=== PATIENT | male | born 1950 | race Caucasian/White ===

== ENCOUNTER 2017-02-12 09:26 | Emergency (ER) | payer OTHER | END 2017-02-12 11:02 | disposition home or self-care (01) | LOC: D.ER 09:26 | DX: M25.562 Pain in left knee (principal); M06.9 Rheumatoid arthritis, unspecified; M11.20 Other chondrocalcinosis, unspecified site; C18.9 Malignant neoplasm of colon, unspecified; J44.9 Chronic obstructive pulmonary disease, unspecified; E11.9 Type 2 diabetes mellitus without complications; Z79.4 Long term (current) use of insulin; A15.9 Respiratory tuberculosis unspecified ==

== ENCOUNTER 2017-06-04 14:54 | Inpatient (IN) | payer OTHER ==
[~2017-06-04] VITALS: Ht 177.8 cm; Wt 71.7 kg
[2017-06-04 16:12] LABS: HEMATOCRIT 34.9 % (42.0-54.0); HEMOGLOBIN 11.7 g/dL (13.5-17.5); KETONE - SERUM MODERATE mg/dL (NEGATIVE); MCH 34.5 pg (26.0-34.0); MCHC 33.5 g/dL (31.0-37.0); MCV 102.9 fL (80.0-100.0); MEAN PLATELET VOLUME 10.3 fL (7.4-10.4); PLATELET COUNT 264 10x3/uL (130-400); RBC 3.39 10x6/uL (4.20-6.10); RDW 12.1 % (11.5-14.5)
[2017-06-04 16:23] LABS: APTT 30.6 SECONDS (22.8-39.4); INR 1.22 (0.85-1.17); PROTIME 15.3 SECONDS (11.6-15.0)
[2017-06-04 16:25] LABS: UDS - AMPHET NEGATIVE QUAL (NEGATIVE); UDS - BARB NEGATIVE QUAL (NEGATIVE); UDS - BENZO NEGATIVE QUAL (NEGATIVE); UDS - COCAINE NEGATIVE QUAL (NEGATIVE); UDS - METH NEGATIVE QUAL (NEGATIVE); UDS - OPIATE NEGATIVE QUAL (NEGATIVE); UDS - PCP NEGATIVE QUAL (NEGATIVE); UDS - THC NEGATIVE QUAL (NEGATIVE)
[2017-06-04 16:36] LABS: APPEARANCE CLEAR (CLEAR); COLOR YELLOW (YELLOW)
[2017-06-04 16:37] LABS: ALBUMIN 3.5 g/dL (3.4-5.0); ALKALINE PHOSPHATASE 68 U/L (46-116); ALT (SGPT) 17 U/L (10-68); BILIRUBIN - TOTAL 0.89 mg/dL (0.2-1.3); CALC OSMOLALITY 316 mosm/kg (275-300); CALCIUM 8.3 mg/dL (8.5-10.1); CREATINE KINASE 211 UL (21-232); CREATININE - SERUM 2.8 mg/dL (0.6-1.3); POTASSIUM - SERUM 5.6 mmol/L (3.5-5.1); PROTEIN - SERUM 6.8 g/dL (6.4-8.2); SODIUM 130 mmol/L (136-145); TROPONIN-I 0.125 ng/mL (0.000-0.060); UREA NITROGEN 43 mg/dL (7-18); eGFR NON AFRICAN AMERICAN 24 mL/min (90-120)
[2017-06-04 16:37] LABS: BILIRUBIN NEGATIVE (NEGATIVE); GLUCOSE 1000 mg/dL (NEGATIVE); KETONE MODERATE mg/dL (NEGATIVE); LEUKOCYTE ESTERASE NEGATIVE (NEGATIVE); NITRITE NEGATIVE (NEGATIVE); PROTEIN TRACE mg/dL (NEGATIVE); SPECIFIC GRAVITY 1.025 (1.005-1.020); UROBILINOGEN NORMAL (NORMAL)
[2017-06-04 16:39] LABS: EOSINOPHILS 2 % (0-7); LYMPHOCYTES 10 % (15-50); NEUTROPHILS 88 % (40-80); PLATELET ESTIMATE NORMAL
[2017-06-04 16:42] LABS: GLUCOSE 903 mg/dL (74-106)
[2017-06-04 16:43] LABS: CARBON DIOXIDE 5.8 mmol/L (21.0-32.0); CHLORIDE - SERUM 84 mmol/L (98-107)
[2017-06-04 20:39] LABS: HEMOGLOBIN A1C 6.2 % (4.8-6.0)
[2017-06-04 20:48] LABS: MAGNESIUM - SERUM 1.9 mg/dL (1.8-2.4); PHOSPHOROUS 7.8 mg/dL (2.5-4.9)
--- NOTE | 2017-06-04 23:30 | NUR ---
ARRIVED TO UNIT FROM ER X2 NURSES. ADMISSION ASSESSMENT COMPLETE PER FLOW SHEET. ALERT AND ORIENTED TO PERSON, TIME, AND SITUATION. ORAL TEMP 97.6. BP 124/63 NIBP. HR 92. RR 34. O2 SAT 97% VIA ROOM AIR. SPEECH CLEAR. PERRLA. LUNG SOUNDS CLEAR. S1S2 PRESENT. TELEMETRY MONITORING NORMAL SINUS. REPORTS HE WEARS GLASSES, AND UPPER AND LOWER DENTURES. RADIAL AND POPLITEAL PULSES PALP. NPO PER DOCTORS ORDERS. MUCOUS MEMBRANES PINK AND MOIST. BS ACTIVE X4. SKIN WARM AND DRY. GENERALIZED GRANULOMA ANNULARE. L HAND SCAR REPORTS ITS DUE FROM MULTIPLE FRACTURES DUE TO A FALL.18G LT AC PIV, PATENT, DRESSING CLEAN AND INTACT, INFUSING INSULIN DRIP AT 7 UNITS/HR.22G RT FOREARM PIV, PATENT, DRESSING CLEAN AND INTACT. UP WITH ASSISTANCE. SEE FLOW SHEET FOR COMPLETE ASSESSMENT. WILL CONTINUE TO MONITOR. DENIES FURTHER NEEDS AT THIS TIME. BED IN LOWEST POSITION. CALL LIGHT WITHIN REACH.
[2017-06-05] VITALS (21 sets, daily range): BP systolic 95–124; BP diastolic 43–63; Ht 177.8 cm; Wt 71.7 kg
--- NOTE | 2017-06-05 01:00 | NUR ---
LAYING IN BED RESTING. ASSISTED TO BED SIDE TO USE URINAL. 700 MLS OF YELLOW URINE OBTAINED. DENIES FURTHER NEEDS. LAYING BACK IN BED. CALL LIGHT WITHIN REACH. BED IN LOWEST POSITION. WILL CONTINUE TO MONITOR.
--- NOTE | 2017-06-05 03:00 | NUR ---
REASSESSMENT COMPLETE PER FLOW SHEET, SEE FOR DETAILS. DENIES NEEDS AT THIS TIME. CALL LIGHT WITHIN REACH. BED IN LOWEST POSITION. WILL CONTINUE TO MONITOR.
[2017-06-05 03:58] LABS: BASOPHILS 0.1 % (0-2); EOSINOPHILS 0 % (0-7); HEMATOCRIT 31.5 % (42.0-54.0); HEMOGLOBIN 11.1 g/dL (13.5-17.5); IMMATURE GRANULOCYTES 0.2 % (0-5); LYMPHOCYTES 8.2 % (15-50); MCH 34.2 pg (26.0-34.0); MCHC 35.2 g/dL (31.0-37.0); MEAN PLATELET VOLUME 10.2 fL (7.4-10.4); MONOCYTES 5.8 % (2-11); NEUTROPHILS 85.7 % (40-80); PLATELET COUNT 237 10x3/uL (130-400); RBC 3.25 10x6/uL (4.20-6.10)
[2017-06-05 04:03] LABS: MCV 96.9 fL (80.0-100.0); WBC 11.2 10x3/uL (4.8-10.8)
[2017-06-05 04:15] LABS: ANION GAP 24.2 mmol/L (8-16); BILIRUBIN - TOTAL 0.75 mg/dL (0.2-1.3); CALCIUM 7.9 mg/dL (8.5-10.1); CREATININE - SERUM 2.1 mg/dL (0.6-1.3); POTASSIUM - SERUM 3.2 mmol/L (3.5-5.1); PROTEIN - SERUM 6.1 g/dL (6.4-8.2)
--- NOTE | 2017-06-05 04:30 | NUR ---
LAYING IN BED RESTING. DENIES NEEDS AT THIS TIME. CALL LIGHT WITHIN REACH. BED IN LOWEST POSITION. WILL CONTINUE TO MONITOR.
--- NOTE | 2017-06-05 05:30 | NUR ---
O2 SAT DROPPING TO LOW 80'S, ENCOURAGED TO TAKE DEEP BREATHS AND 2L NC APPLIED, O2 SAT IMPROVING TO 90'S. BED IN LOWEST POSITION. DENIES FURTHER NEEDS AT THIS TIME. WILL CONTINUE TO MONITOR.
--- NOTE | 2017-06-05 06:00 | NUR ---
LAYING IN BED RESTING. VSS. DENIES NEEDS AT THIS TIME. CALL LIGHT WITHIN REACH. BED IN LOWEST POSITION. WILL CONTINUE TO MONITOR.
--- NOTE | 2017-06-05 07:00 | NUR ---
PT AWAKE ALERT AND ORIENTED X4, ABLE TO FOLLOW COMMANDS AND EXPRESS NEEDS. PT APPEARS TO BE UPSET AND ARGUMENTATIVE WITH STAFF. EXPLAINED NEED FOR CARE. NORMAL SINUS ON MONITOR. O2 SAT STABLE ON 2L NC. PT BLOOD SUGAR WNL, INSULIN DRIP DC AND PT ON SLIDING SCALE PER DR GALLO. NYSTATIN STARTED FOR POSSIBLE THRUSH IN MOUTH, PT COMPLAINING OF DISCOMFORT FOR DAYS AND TROUBLE SWALLOWING. COMPLETE SHIFT ASSESSMENT DOCUMENTED PER FLOWSHEET. WILL CONTINUE TO MONITOR
[2017-06-05 08:13] LABS: KETONE - SERUM NEGATIVE (NEGATIVE)
[2017-06-05 08:16] LABS: CALCIUM 7.9 mg/dL (8.5-10.1); CHLORIDE - SERUM 104 mmol/L (98-107); CREATININE - SERUM 1.7 mg/dL (0.6-1.3); MAGNESIUM - SERUM 1.6 mg/dL (1.8-2.4); POTASSIUM - SERUM 3.6 mmol/L (3.5-5.1); SODIUM 142 mmol/L (136-145); UREA NITROGEN 48 mg/dL (7-18); eGFR NON AFRICAN AMERICAN 43 mL/min (90-120)
[2017-06-05 08:19] LABS: CALC OSMOLALITY 298 mosm/kg (275-300); CARBON DIOXIDE 28.4 mmol/L (21.0-32.0); GLUCOSE 160 mg/dL (74-106); TROPONIN-I 6.726 ng/mL (0.000-0.060)
--- NOTE | 2017-06-05 09:00 | NUR ---
CALLED THERAPY TO ENSURE SPEECH EVAL WILL BE DONE. SANTOS WILL BE HERE THIS MORNING TO EVAL AND SUGGEST DIET ORDER. NO CHANGES FROM PREVIOUS NOTE. VITAL SIGNS STABLE.
--- NOTE | 2017-06-05 11:00 | NUR ---
SWALLOW EVAL COMPLETE PER SANTOS CASTREJON AND DIABETIC DIET ORDERED. PT TOLERATING THIN LIQUIDS WITHOUT DIFFICULTY. WILL CONTINUE TO MONITOR
--- NOTE | 2017-06-05 12:00 | NUR ---
ATTEMPTED TO CALL [facility] FOR PT MEDICATION RECORD. NO ANSWER AFTER THREE CALLS. WILL INFORM DR GALLO.
--- NOTE | 2017-06-05 13:00 | NUR ---
TROPONIN ELEVATED, STAT EKG SHOWS NORMAL SINUS WITH SINUS ARRYTHMIA. REDRAW PUT IN COMPUTER. DR GALLO CALLED AND NOTIFIED. WILL CONSULT CARDIOLOGY AND PROCEED WITH TRANSFER TO FLOOR IF PT REMAINS STABLE.
--- NOTE | 2017-06-05 13:05 | NUR ---
CALLED [facility] OFFICE AND NOTIFIED OF NEW CONSULT. NO FURTHER CHANGES
[2017-06-05 13:07] LABS: ANION GAP 19.4 mmol/L (8-16); CALCIUM 7.9 mg/dL (8.5-10.1); CARBON DIOXIDE 22.3 mmol/L (21.0-32.0); CHOL - HDL RATIO 1.9 ratio (2.3-4.9); CREATININE - SERUM 1.4 mg/dL (0.6-1.3); LDL-HDL RATIO 0.7 ratio (1.5-3.5); MAGNESIUM - SERUM 1.6 mg/dL (1.8-2.4); POTASSIUM - SERUM 3.7 mmol/L (3.5-5.1)
[2017-06-05 13:11] LABS: TROPONIN-I 4.699 ng/mL (0.000-0.060)
--- NOTE | 2017-06-05 15:00 | NUR ---
NO ACUTE CHANGES IN PT STATUS AT THIS TIME. TRANSFER ORDERS IN COMPUTER. WAITING FOR BED TO TRANSFER. VITAL SIGNS STABLE
[2017-06-05 17:23] LABS: ANION GAP 19.2 mmol/L (8-16); CALCIUM 7.8 mg/dL (8.5-10.1); CARBON DIOXIDE 22.4 mmol/L (21.0-32.0); CREATININE - SERUM 1.2 mg/dL (0.6-1.3); MAGNESIUM - SERUM 1.5 mg/dL (1.8-2.4); POTASSIUM - SERUM 3.6 mmol/L (3.5-5.1)
--- NOTE | 2017-06-05 18:00 | NUR ---
REPORT GIVEN TO ELISE GOVEA. PT STABLE TO TRANSFER AT THIS TIME. NO ACUTE CHANGES IN STATUS.
--- NOTE | 2017-06-05 18:51 | NUR ---
PT ARRIVED TO UNIT ALERT AND ORIENTED DENIES ANY NEEDS
--- NOTE | 2017-06-05 19:29 | NUR ---
RECEIVED REPORT, WILL ASSUME CARE OF PT, PT DENIES ANY NEEDS AT THIS TIME, BED IS LOW, SRX2, CALL LIGHT IN REACH, WILL CONTINUE PLAN OF CARE
--- NOTE | 2017-06-05 19:55 | NUR ---
LOG CHAIN FEEDER AT BEDSIDE TO OBTAIN VITALS, CALL LIGHT IN REACH. WILL CONTINUE WITH PLAN OF CARE.
[2017-06-06] VITALS: BP 116/63
--- NOTE | 2017-06-06 01:45 | NUR ---
ASSESSMENT COMPLETE, SEE FLOWSHEET, PT SLEEPING ON R. SIDE, BED IS LOW, SRX2,CALL LIGHT IN REACH, WILL CONTINUE PLAN OF CARE
[2017-06-06 04:00] VITALS: BP 138/68
[2017-06-06 05:43] LABS: ALBUMIN 2.5 g/dL (3.4-5.0); ALKALINE PHOSPHATASE 53 U/L (46-116); BILIRUBIN - TOTAL 0.57 mg/dL (0.2-1.3); CALCIUM 7.8 mg/dL (8.5-10.1); CARBON DIOXIDE 21.5 mmol/L (21.0-32.0); CHLORIDE - SERUM 104 mmol/L (98-107); CREATININE - SERUM 0.9 mg/dL (0.6-1.3); GLUCOSE 227 mg/dL (74-106); MAGNESIUM - SERUM 1.6 mg/dL (1.8-2.4); POTASSIUM - SERUM 3.5 mmol/L (3.5-5.1); PROTEIN - SERUM 5.6 g/dL (6.4-8.2); SODIUM 142 mmol/L (136-145); eGFR NON AFRICAN AMERICAN 89 mL/min (90-120)
[2017-06-06 05:47] LABS: ALT (SGPT) 35 U/L (10-68); CALC OSMOLALITY 293 mosm/kg (275-300); UREA NITROGEN 25 mg/dL (7-18)
[2017-06-06 05:48] LABS: PHOSPHOROUS 1.4 mg/dL (2.5-4.9)
[2017-06-06 06:08] LABS: BASOPHILS 0.2 % (0-2); EOSINOPHILS 0.6 % (0-7); HEMOGLOBIN 10.9 g/dL (13.5-17.5); IMMATURE GRANULOCYTES 0.3 % (0-5); LYMPHOCYTES 14.1 % (15-50); MCH 34.1 pg (26.0-34.0); MCHC 35.2 g/dL (31.0-37.0); MCV 96.9 fL (80.0-100.0); MEAN PLATELET VOLUME 10.4 fL (7.4-10.4); MONOCYTES 10.4 % (2-11); NEUTROPHILS 74.4 % (40-80); PLATELET COUNT 199 10x3/uL (130-400); RDW 12.3 % (11.5-14.5); WBC 11.5 10x3/uL (4.8-10.8)
--- NOTE | 2017-06-06 07:24 | NUR ---
PT LAYING FLAT WITH PILLOW OVER FACE. RR EVEN AND UNLABORED. NO S/S DISTRESS NOTED WILL CONT TO MONITOR
[2017-06-06 07:31] VITALS: BP 125/71
--- NOTE | 2017-06-06 08:25 | NUR ---
UPON CHECKING PT FSBS WAS 500. RECHECKED WITH READING OF 414. PT DID REFUSE THIS MORNINGS SLIDING SCALE INSULIN WHEN HIS SUGAR WAS 285 CLAIMING THAT TAKING THAT INSULIN "WILL KILL ME". GAVE PT MORE EDUCATION ABOUT HUMULIN SLIDING SCALE AND EXPLAINED IN THOROUGH DETAIL ABOUT LANTUS PEN BEING LONG ACTING AND HUMULIN IS SHORT ACTING. PT AGREEABLE TO TAKE BOTH FOR ELEVATED BS. DR GALLO PAGED FOR ELEVATED BS.
[2017-06-06 12:39] VITALS: BP 143/74
--- NOTE | 2017-06-06 12:48 | NUR ---
Nutrition follow-up: Diet: ADA consistent CHO with po intake ~50% of meals at this time Labs reviewed Wt: 158# +BM A1c: 6.2 with average daily glucose 131 mg/dl RDN following.
--- NOTE | 2017-06-06 14:49 | NUR ---
PT SITTING UP IN BED WATCHING TV DENIES NEEDS WILL CONT TO MONITOR
--- NOTE | 2017-06-06 15:43 | NUR ---
Patient Name: BELKYS LEMON Admission Status: ER Accout number: [id number] Admission Date: 06-04-2017 : 1950 Admission Diagnosis: Attending: TOYA Current LOS: 2 Anticipated DC Date: Planned Disposition: [place] facility Primary Insurance: [employer] PLANNED EXTERNAL PROVIDER: [facility] Discharge Planning Comments: * Is the patient Alert and Oriented? Yes 0 * How many steps to enter\exit or inside your home? 4 0 * PCP DR. ESCAMILLA, [facility] 0 * Pharmacy [facility] [place] AFTER TAKING PRESCRIPTIONS TO [facility] 0 * Preadmission Environment Home Alone 0 * ADLs Independent 0 * Equipment [facility] Glucometer Walker 0 * Other Equipment [facility]IPMENT PROVID[facility] 0 * List name and contact numbers for known caregivers / representatives who currently or will assist patient after discharge: PIYUSH BROWN - [phone] 0 * Community resources currently utilized None 0 * Please name any agencies selected above. NONE 0 * Additional services required to return to the preadmission environment? No 0 * Can the patient safely return to the preadmission environment? Yes 0 * Has this patient been hospitalized within the prior 30 days at any hospital? No 0 CM MET WITH PT IN ROOM TO DISCUSS DISCHARGE PLANNING AND NEEDS. PT REPORTS LIVING AT HOME INDEPENDENTLY AND ALONE. PT HAS CANE, GLUCOMENTER, WALKER AND BLO[facility]. PT HAS NO OUTSIDE SERVICES ASSISTING IN THE HOME. CM DISCUSSED AVAILABILITY OF HOME HEALTH, REHAB SERVICES AND MEDICAL EQUIPMENT. PT DENIES DISCHARGE NEEDS, REPORTS HE WANTS TO MAKE SURE [facility] VISIT. PT REPORTS HE WAS PLACED ON [facility] TRANSFER LIST IN THE ER BUT THEY HAD NO BED. PT REPORTS HIS FRIEND WILL PICK HER UP FOR DISCHARGE HOME. CM CALLED [facility], , SPOKE TO LANDON WHO REPORTS PT WAS ACCEPTED BUT [facility]. CM UPDATED PT'S FLOOR STATUS AND HOSPITAL CONTACT INFORMATION. LANDON STATES CM CAN CALL OVER THE WEEKEND BUT IT IS NOT NECESSARY, [facility] WILL [facility]CT [facility] AND IF A [facility] BED BECOMES AVAILABLE. PT NOTIFIED. Android Platform Developer: Fausto Frey
[2017-06-06 15:46] VITALS: BP 151/80
--- NOTE | 2017-06-06 16:31 | NUR ---
PT BS IS [address] PROVIDED
--- NOTE | 2017-06-06 18:00 | NUR ---
PT LAYING TO R SIDE SLEEPING RR EVEN AND UNLABORED NO S/S DISTRESS NOTED
[2017-06-06 20:00] VITALS: BP 167/86
--- NOTE | 2017-06-06 23:25 | NUR ---
ADMIN 1 PKG OF NEUTRA-PHOS MIXED IN 3 OZ WATER FOR PHOSPHORUS LAB VALUE 1.1.
--- NOTE | 2017-06-07 03:20 | NUR ---
RETURNING TO BED FROM BATHROOM. ADMIN NEUTRA-PHOS AND NYSTATIN. REQUESTED MORE ICE WATER.
[2017-06-07 04:00] VITALS: BP 162/86
[2017-06-07 06:37] LABS: BASOPHILS 0.3 % (0-2); EOSINOPHILS 0.7 % (0-7); HEMATOCRIT 33.3 % (42.0-54.0); HEMOGLOBIN 11.7 g/dL (13.5-17.5); IMMATURE GRANULOCYTES 0.2 % (0-5); LYMPHOCYTES 17.6 % (15-50); MCH 34.2 pg (26.0-34.0); MCHC 35.1 g/dL (31.0-37.0); MCV 97.4 fL (80.0-100.0); MEAN PLATELET VOLUME 10.4 fL (7.4-10.4); MONOCYTES 9.9 % (2-11); NEUTROPHILS 71.3 % (40-80); PLATELET COUNT 178 10x3/uL (130-400); RBC 3.42 10x6/uL (4.20-6.10); RDW 12.1 % (11.5-14.5); WBC 9.4 10x3/uL (4.8-10.8)
[2017-06-07 06:57] LABS: ALBUMIN 2.9 g/dL (3.4-5.0); ALKALINE PHOSPHATASE 84 U/L (46-116); ALT (SGPT) 49 U/L (10-68); BILIRUBIN - TOTAL 0.95 mg/dL (0.2-1.3); CALC OSMOLALITY 271 mosm/kg (275-300); CALCIUM 8.3 mg/dL (8.5-10.1); CARBON DIOXIDE 26.5 mmol/L (21.0-32.0); CHLORIDE - SERUM 98 mmol/L (98-107); CREATININE - SERUM 0.5 mg/dL (0.6-1.3); GLUCOSE 186 mg/dL (74-106); MAGNESIUM - SERUM 1.3 mg/dL (1.8-2.4); PHOSPHOROUS 1.8 mg/dL (2.5-4.9); POTASSIUM - SERUM 3.2 mmol/L (3.5-5.1); PROTEIN - SERUM 6.4 g/dL (6.4-8.2); SODIUM 134 mmol/L (136-145); UREA NITROGEN 9 mg/dL (7-18); eGFR NON AFRICAN AMERICAN > 90 mL/min (90-120)
--- NOTE | 2017-06-07 07:41 | NUR ---
AM ROUNDS - PT IS IN BED AND AWAKE. IV TO LEFT FA WITH NS AT 100CC/HR. IV TO R FA, SL. O2 AT 2L VIA NC. PT HAS A SPLINT IN LEFT THUMB. PT STATES HE "BROKE IT". NON SKID SOCKS ON. YELLOW BAND ON. MONITOR SHOWING SR, HR 75. [facility]. WILL CONTINUE TO MONITOR
[2017-06-07 08:00] VITALS: BP 159/86
--- NOTE | 2017-06-07 09:50 | NUR ---
MORNING MEDICATION GIVEN ALONG WITH K+ AND MAG PER ELECTROLITE PROTOCAL. NO NEEDS AT THIS TIME. WILL CONTINUE TO MONITOR
[2017-06-07] MEDS ORDERED: LIPITOR20 MG PO (11:05)
[2017-06-07] MEDS ORDERED: LISINOPRIL5 MG PO (11:06)
[2017-06-07] MEDS ORDERED: ASPIRIN81 MG PO (11:06)
[2017-06-07] MEDS ORDERED: GLUCOPHAGE500 MG PO (11:08)
[2017-06-07] MEDS ORDERED: LANTUS INSULIN10 ML SC (11:08)
[2017-06-07 12:00] VITALS: BP 167/88
--- NOTE | 2017-06-07 13:21 | NUR ---
D/C - WRITTEN AND VERBAL D/C INTRUCTIONS GIVEN TO PT. IV TO L AND R FA D/C, CATH TIP INTACT ON BOTH. APPLIED A 2X2 DRESSING ADN SECURED WITH TAPE ON BOTH IV SITES. PT TOLERATED WELL. PT IS GETTING DRESSED AND WAITIN ON TRANSPORTATION. WILL CONTINUE TO MONITOR
--- NOTE | 2017-06-07 13:53 | NUR ---
PT LEFT FLOOR VIA WHEELCHAIR WITH CONCRETE PILE DRIVER OPERATOR. WILL D/C
--- NOTE | 2017-06-09 09:51 | NUR ---
Patient Name: BELKYS LEMON Encounter No: [id number] : 1950 Primary Insurance: [employer] Anticipated DC Date: 06-07-2017 Planned Disposition: HOME DCP follow-up note: CM REVIEWED CHART, PT DISCHARGED HOME OVER THE WEEKEND. CM CALLED [place] EXPEDITOR, , SPOKE TO AND NOTIFIED OF DISCHARGE HOME. CM FAXED PT'S DISCHARGE INFORMATION TO [facility] AT [phone]. Fausto Frey, CASE MANAGEMENT
== END 2017-06-07 13:54 | disposition home or self-care (01) | DRG 638 ==
LOC: D.ER 14:54 → D.ICU 21:59 → D.M2 06-05 18:50
PROVIDERS: Emergency Medicine; ADMIT Family Medicine
DX: E13.10 Other specified diabetes mellitus with ketoacidosis without coma (principal); N17.9 Acute kidney failure, unspecified; Z79.4 Long term (current) use of insulin; E87.5 Hyperkalemia; E87.6 Hypokalemia; M19.90 Unspecified osteoarthritis, unspecified site; Z85.038 Personal history of other malignant neoplasm of large intestine; E83.39 Other disorders of phosphorus metabolism; E83.42 Hypomagnesemia; M17.12 Unilateral primary osteoarthritis, left knee; E78.5 Hyperlipidemia, unspecified; K21.9 Gastro-esophageal reflux disease without esophagitis

== ENCOUNTER 2017-09-28 16:36 | Emergency (ER) | payer OTHER ==
[2017-06-05 09:14] VITALS: BMI 22.6
[~2017-09-28 16:36] MED LIST: ASPIRIN81 MG PO; GLUCOPHAGE500 MG PO; LANTUS INSULIN10 ML SC; LIPITOR20 MG PO; LISINOPRIL5 MG PO
[2017-09-28 17:30] LABS: BASOPHILS 0.1 % (0-2); EOSINOPHILS 0 % (0-7); HEMATOCRIT 42.3 % (42.0-54.0); HEMOGLOBIN 13.6 g/dL (13.5-17.5); IMMATURE GRANULOCYTES 0.5 % (0-5); LYMPHOCYTES 6.2 % (15-50); MCH 33.3 pg (26.0-34.0); MCHC 32.2 g/dL (31.0-37.0); MCV 103.4 fL (80.0-100.0); MEAN PLATELET VOLUME 10.6 fL (7.4-10.4); MONOCYTES 6.6 % (2-11); NEUTROPHILS 86.6 % (40-80); RBC 4.09 10x6/uL (4.20-6.10); RDW 12.3 % (11.5-14.5); WBC 19.5 10x3/uL (4.8-10.8)
[2017-09-28 17:31] LABS: KETONE - SERUM LARGE mg/dL (NEGATIVE)
[2017-09-28 17:34] LABS: PLATELET COUNT 286 10x3/uL (130-400)
[2017-09-28 17:35] LABS: APPEARANCE HAZY (CLEAR); BILIRUBIN NEGATIVE (NEGATIVE); COLOR YELLOW (YELLOW); GLUCOSE 1000 mg/dL (NEGATIVE); KETONE MODERATE mg/dL (NEGATIVE); NITRITE NEGATIVE (NEGATIVE); PROTEIN NEGATIVE (NEGATIVE); UROBILINOGEN NORMAL (NORMAL)
[2017-09-28 17:39] LABS: ALBUMIN 3.8 g/dL (3.4-5.0); ALKALINE PHOSPHATASE 82 U/L (46-116); ALT (SGPT) 33 U/L (10-68); AMYLASE - SERUM 28 U/L (25-115); BILIRUBIN - TOTAL 1.14 mg/dL (0.2-1.3); CALCIUM 9.4 mg/dL (8.5-10.1); CHLORIDE - SERUM 92 mmol/L (98-107); CREATININE - SERUM 2.3 mg/dL (0.6-1.3); LIPASE 88 U/L (73-393); POTASSIUM - SERUM 5.5 mmol/L (3.5-5.1); PROTEIN - SERUM 7.8 g/dL (6.4-8.2); SODIUM 140 mmol/L (136-145); UREA NITROGEN 28 mg/dL (7-18); eGFR NON AFRICAN AMERICAN 30 mL/min (90-120)
[2017-09-28 17:40] LABS: CALC OSMOLALITY 310 mosm/kg (275-300)
[2017-09-28 17:42] LABS: GLUCOSE 568 mg/dL (74-106)
[2017-09-28 17:43] LABS: CARBON DIOXIDE 6.6 mmol/L (21.0-32.0)
== END 2017-09-28 21:23 | disposition short-term general hospital (02) ==
LOC: D.ER 16:36
PROVIDERS: Emergency Medicine
DX: E13.10 Other specified diabetes mellitus with ketoacidosis without coma (principal); Z79.4 Long term (current) use of insulin; Z89.619 Acquired absence of unspecified leg above knee; E86.0 Dehydration

== ENCOUNTER 2018-01-26 09:05 | Emergency (ER) | payer OTHER ==
[2017-06-05 09:14] VITALS: BMI 22.6
[2018-01-26 09:41] LABS: BASOPHILS 0.8 % (0-2); EOSINOPHILS 5.7 % (0-7); HEMATOCRIT 41.1 % (42.0-54.0); HEMOGLOBIN 14.3 g/dL (13.5-17.5); IMMATURE GRANULOCYTES 0.2 % (0-5); LYMPHOCYTES 36.7 % (15-50); MCH 32.6 pg (26.0-34.0); MCHC 34.8 g/dL (31.0-37.0); MCV 93.8 fL (80.0-100.0); MEAN PLATELET VOLUME 10.4 fL (7.4-10.4); NEUTROPHILS 42.6 % (40-80); PLATELET COUNT 218 10x3/uL (130-400); RBC 4.38 10x6/uL (4.20-6.10); RDW 12.3 % (11.5-14.5); WBC 6.7 10x3/uL (4.8-10.8)
[2018-01-26 10:02] LABS: ALBUMIN 3.7 g/dL (3.4-5.0); ALKALINE PHOSPHATASE 88 U/L (46-116); ALT (SGPT) 31 U/L (10-68); CALC OSMOLALITY 284 mosm/kg (275-300); CALCIUM 9.3 mg/dL (8.5-10.1); CARBON DIOXIDE 26.1 mmol/L (21.0-32.0); CHLORIDE - SERUM 102 mmol/L (98-107); CREATININE - SERUM 0.9 mg/dL (0.6-1.3); POTASSIUM - SERUM 3.7 mmol/L (3.5-5.1); PROTEIN - SERUM 7.8 g/dL (6.4-8.2); SODIUM 139 mmol/L (136-145); UREA NITROGEN 18 mg/dL (7-18); eGFR NON AFRICAN AMERICAN 89 mL/min (90-120)
[2018-01-26 10:04] LABS: GLUCOSE 184 mg/dL (74-106)
[2018-01-26 10:17] LABS: CKMB 2.1 U/L (0.0-3.6); CREATINE KINASE 78 UL (21-232); TROPONIN-I < 0.017 ng/mL (0.000-0.060)
== END 2018-01-26 13:28 | disposition home or self-care (01) ==
LOC: D.ER 09:05
PROVIDERS: Family Medicine
DX: M94.0 Chondrocostal junction syndrome [Tietze] (principal)

== ENCOUNTER 2018-03-14 13:49 | Emergency (ER) | payer OTHER ==
[2017-06-05 09:14] VITALS: BMI 22.6
[2018-03-14 14:42] LABS: BASOPHILS 0.2 % (0-2); EOSINOPHILS 0.1 % (0-7); HEMATOCRIT 41.5 % (42.0-54.0); HEMOGLOBIN 13.4 g/dL (13.5-17.5); IMMATURE GRANULOCYTES 0.4 % (0-5); LYMPHOCYTES 6.1 % (15-50); MCH 33.4 pg (26.0-34.0); MCHC 32.3 g/dL (31.0-37.0); MCV 103.5 fL (80.0-100.0); MEAN PLATELET VOLUME 10.3 fL (7.4-10.4); MONOCYTES 9.2 % (2-11); PLATELET COUNT 274 10x3/uL (130-400); RBC 4.01 10x6/uL (4.20-6.10); RDW 12.7 % (11.5-14.5); WBC 18.3 10x3/uL (4.8-10.8)
[2018-03-14 14:52] LABS: APPEARANCE CLEAR (CLEAR); BILIRUBIN NEGATIVE (NEGATIVE); COLOR YELLOW (YELLOW); GLUCOSE 100 mg/dL (NEGATIVE); KETONE MODERATE mg/dL (NEGATIVE); NITRITE NEGATIVE (NEGATIVE); PROTEIN TRACE mg/dL (NEGATIVE); UROBILINOGEN NORMAL (NORMAL)
[2018-03-14 14:54] LABS: ALBUMIN 3.4 g/dL (3.4-5.0); ALKALINE PHOSPHATASE 106 U/L (46-116); ALT (SGPT) 45 U/L (10-68); CALCIUM 9.8 mg/dL (8.5-10.1); CHLORIDE - SERUM 98 mmol/L (98-107); CREATININE - SERUM 1.9 mg/dL (0.6-1.3); MAGNESIUM - SERUM 1.7 mg/dL (1.8-2.4); POTASSIUM - SERUM 5.4 mmol/L (3.5-5.1); PROTEIN - SERUM 7.3 g/dL (6.4-8.2); SODIUM 140 mmol/L (136-145); UREA NITROGEN 33 mg/dL (7-18); eGFR NON AFRICAN AMERICAN 38 mL/min (90-120)
[2018-03-14 14:55] LABS: CALC OSMOLALITY 300 mosm/kg (275-300); GLUCOSE 363 mg/dL (74-106); KETONE - SERUM SMALL mg/dL (NEGATIVE)
[2018-03-14 14:56] LABS: CARBON DIOXIDE 4.9 mmol/L (21.0-32.0)
[2018-03-14 15:09] LABS: CREATINE KINASE 110 UL (21-232); PRO BNP 181 pg/mL (0-125); TROPONIN-I < 0.017 ng/mL (0.000-0.060)
== END 2018-03-14 19:29 | disposition short-term general hospital (02) ==
LOC: D.ER 13:49
PROVIDERS: Emergency Medicine
DX: E10.10 Type 1 diabetes mellitus with ketoacidosis without coma (principal); Z79.4 Long term (current) use of insulin; I10 Essential (primary) hypertension; Z85.038 Personal history of other malignant neoplasm of large intestine; M06.9 Rheumatoid arthritis, unspecified; F17.200 Nicotine dependence, unspecified, uncomplicated

== ENCOUNTER 2018-08-08 17:00 | Emergency (ER) | payer OTHER ==
[~2018-08-08] VITALS: Ht 177.8 cm; Wt 75.0 kg
[2018-08-08 17:12] VITALS: Ht 177.8 cm; Wt 75.0 kg
[2018-08-08] MEDS ORDERED: NOVOLOG (17:14)
[2018-08-08] MEDS ORDERED: SOLIQUA 100 UNIT3 ML SQ (17:14)
[2018-08-08 17:35] LABS: BASOPHILS 0.4 % (0-2); EOSINOPHILS 0.2 % (0-7); HEMOGLOBIN 14.3 g/dL (13.5-17.5); IMMATURE GRANULOCYTES 0.1 % (0-5); LYMPHOCYTES 17.2 % (15-50); MCHC 34.9 g/dL (31.0-37.0); MCV 94.7 fL (80.0-100.0); MEAN PLATELET VOLUME 10.1 fL (7.4-10.4); MONOCYTES 8.4 % (2-11); NEUTROPHILS 73.7 % (40-80); RBC 4.33 10x6/uL (4.20-6.10); RDW 12.7 % (11.5-14.5); WBC 8.3 10x3/uL (4.8-10.8)
[2018-08-08 17:37] LABS: PLATELET COUNT 218 10x3/uL (130-400)
[2018-08-08 17:38] LABS: APPEARANCE CLEAR (CLEAR); BILIRUBIN NEGATIVE (NEGATIVE); COLOR YELLOW (YELLOW); GLUCOSE 1000 mg/dL (NEGATIVE); KETONE LARGE mg/dL (NEGATIVE); NITRITE NEGATIVE (NEGATIVE); PROTEIN 1+ mg/dL (NEGATIVE); UROBILINOGEN NORMAL (NORMAL)
[2018-08-08 17:39] LABS: BACTERIA MODERATE /hpf (NONE SEEN); RED CELLS - URINE 0-5 /hpf (0-5)
[2018-08-08 17:52] LABS: KETONE - SERUM SMALL mg/dL (NEGATIVE)
[2018-08-08 18:02] LABS: ALBUMIN 3.9 g/dL (3.4-5.0); ALKALINE PHOSPHATASE 152 U/L (46-116); ALT (SGPT) 80 U/L (10-68); BILIRUBIN - TOTAL 1.18 mg/dL (0.2-1.3); CALC OSMOLALITY 288 mosm/kg (275-300); CALCIUM 9.8 mg/dL (8.5-10.1); CARBON DIOXIDE 19.8 mmol/L (21.0-32.0); CHLORIDE - SERUM 97 mmol/L (98-107); CREATININE - SERUM 1.1 mg/dL (0.6-1.3); MAGNESIUM - SERUM 1.4 mg/dL (1.8-2.4); POTASSIUM - SERUM 4.7 mmol/L (3.5-5.1); PROTEIN - SERUM 7.9 g/dL (6.4-8.2); SODIUM 138 mmol/L (136-145); UREA NITROGEN 22 mg/dL (7-18); eGFR NON AFRICAN AMERICAN 71 mL/min (90-120)
[2018-08-08 18:05] LABS: GLUCOSE 286 mg/dL (74-106)
[2018-08-08 18:55] LABS: AMYLASE - SERUM 36 U/L (25-115); LIPASE 93 U/L (73-393)
[2018-08-08 21:05] VITALS: BP 161/78
== END 2018-08-08 21:05 | disposition home or self-care (01) ==
LOC: D.ER 17:00
PROVIDERS: Emergency Medicine
DX: E11.65 Type 2 diabetes mellitus with hyperglycemia (principal); Z79.4 Long term (current) use of insulin; R79.89 Other specified abnormal findings of blood chemistry; E83.42 Hypomagnesemia; R53.1 Weakness; I10 Essential (primary) hypertension; Z86.11 Personal history of tuberculosis; F17.200 Nicotine dependence, unspecified, uncomplicated

== ENCOUNTER 2019-01-17 22:21 | Emergency (ER) | payer OTHER ==
[~2019-01-17] VITALS: Ht 177.8 cm; Wt 78.0 kg
[~2019-01-17 22:21] MED LIST changes: +NOVOLOG; +SOLIQUA 100 UNIT3 ML SQ
[2019-01-17 22:46] VITALS: Ht 177.8 cm; Wt 78.0 kg
[2019-01-17] MEDS ORDERED: LANTUS INSULIN10 ML (22:48)
[2019-01-17 23:22] LABS: BASOPHILS 0.2 % (0-2); EOSINOPHILS 0.1 % (0-7); HEMATOCRIT 41.4 % (42.0-54.0); HEMOGLOBIN 14.3 g/dL (13.5-17.5); IMMATURE GRANULOCYTES 0.3 % (0-5); MCH 32.9 pg (26.0-34.0); MCHC 34.5 g/dL (31.0-37.0); MCV 95.2 fL (80.0-100.0); MONOCYTES 10.4 % (2-11); PLATELET COUNT 253 10x3/uL (130-400); RBC 4.35 10x6/uL (4.20-6.10); RDW 12.9 % (11.5-14.5); WBC 12.1 10x3/uL (4.8-10.8)
[2019-01-17 23:29] LABS: APPEARANCE HAZY (CLEAR); BACTERIA NONE SEEN /hpf (NONE SEEN); BILIRUBIN NEGATIVE (NEGATIVE); COLOR YELLOW (YELLOW); EPITHELIAL CELLS NSEEN /hpf (0-5); GLUCOSE 1000 mg/dL (NEGATIVE); KETONE LARGE mg/dL (NEGATIVE); NITRITE NEGATIVE (NEGATIVE); PROTEIN 2+ mg/dL (NEGATIVE); SPECIFIC GRAVITY 1.015 (1.005-1.020); UROBILINOGEN NORMAL (NORMAL); WHITE CELLS - URINE 0-5 /hpf (0-5)
[2019-01-17 23:31] LABS: KETONE - SERUM MODERATE mg/dL (NEGATIVE)
[2019-01-17 23:36] LABS: ALBUMIN 3.6 g/dL (3.4-5.0); ALKALINE PHOSPHATASE 153 U/L (46-116); ALT (SGPT) 71 U/L (10-68); BILIRUBIN - TOTAL 1.59 mg/dL (0.2-1.3); CALC OSMOLALITY 290 mosm/kg (275-300); CALCIUM 9.5 mg/dL (8.5-10.1); CARBON DIOXIDE 27.7 mmol/L (21.0-32.0); CHLORIDE - SERUM 96 mmol/L (98-107); CREATININE - SERUM 0.9 mg/dL (0.6-1.3); GLUCOSE 221 mg/dL (74-106); POTASSIUM - SERUM 3.7 mmol/L (3.5-5.1); PROTEIN - SERUM 8.3 g/dL (6.4-8.2); SODIUM 142 mmol/L (136-145); UREA NITROGEN 16 mg/dL (7-18); eGFR NON AFRICAN AMERICAN 89 mL/min (90-120)
[2019-01-17 23:40] LABS: AMYLASE - SERUM 44 U/L (25-115); LIPASE 81 U/L (73-393); TROPONIN-I 0.047 ng/mL (0.000-0.060)
[2019-01-18 00:15] LABS: MAGNESIUM - SERUM 1.1 mg/dL (1.8-2.4)
[2019-01-18] MEDS ORDERED: ZOFRAN ODT4 MG/UDTAB PO (04:05)
[2019-01-18 04:53] VITALS: BP 145/78
== END 2019-01-18 04:54 | disposition home or self-care (01) ==
LOC: D.ER 22:21
PROVIDERS: Emergency Medicine
DX: R11.2 Nausea with vomiting, unspecified (principal); K74.60 Unspecified cirrhosis of liver; E11.9 Type 2 diabetes mellitus without complications; Z79.4 Long term (current) use of insulin

== ENCOUNTER 2019-05-30 00:07 | Emergency (ER) | payer OTHER ==
[~2019-05-30] VITALS: Ht 177.8 cm; Wt 79.5 kg
[~2019-05-30 00:07] MED LIST changes: +LANTUS INSULIN10 ML; +ZOFRAN ODT4 MG/UDTAB PO
[2019-05-30 00:11] VITALS: Ht 177.8 cm; Wt 79.5 kg
[2019-05-30 00:31] LABS: BASOPHILS 0.1 % (0-2); EOSINOPHILS 0 % (0-7); HEMATOCRIT 33.9 % (42.0-54.0); HEMOGLOBIN 11.4 g/dL (13.5-17.5); IMMATURE GRANULOCYTES 0.3 % (0-5); LYMPHOCYTES 12.7 % (15-50); MCH 33.5 pg (26.0-34.0); MCHC 33.6 g/dL (31.0-37.0); MCV 99.7 fL (80.0-100.0); MEAN PLATELET VOLUME 9.7 fL (7.4-10.4); MONOCYTES 11.8 % (2-11); NEUTROPHILS 75.1 % (40-80); RDW 14.5 % (11.5-14.5); WBC 11.3 10x3/uL (4.8-10.8)
[2019-05-30 00:34] LABS: PLATELET COUNT 163 10x3/uL (130-400)
[2019-05-30 00:41] LABS: KETONE - SERUM LARGE mg/dL (NEGATIVE)
[2019-05-30 00:43] LABS: ALBUMIN 3.3 g/dL (3.4-5.0); ALKALINE PHOSPHATASE 122 U/L (46-116); ALT (SGPT) 22 U/L (10-68); BILIRUBIN - TOTAL 1.04 mg/dL (0.2-1.3); CALC OSMOLALITY 289 mosm/kg (275-300); CALCIUM 8.6 mg/dL (8.5-10.1); CHLORIDE - SERUM 95 mmol/L (98-107); CREATININE - SERUM 1.9 mg/dL (0.6-1.3); MAGNESIUM - SERUM 1.2 mg/dL (1.8-2.4); POTASSIUM - SERUM 4.2 mmol/L (3.5-5.1); PROTEIN - SERUM 7.2 g/dL (6.4-8.2); SODIUM 138 mmol/L (136-145); UREA NITROGEN 23 mg/dL (7-18); eGFR NON AFRICAN AMERICAN 37 mL/min (90-120)
[2019-05-30 00:44] LABS: GLUCOSE 270 mg/dL (74-106)
[2019-05-30 02:56] LABS: APTT 28.6 SECONDS (22.8-39.4); INR 1.05 (0.85-1.17); PROTIME 13.2 SECONDS (11.6-15.0)
[2019-05-30 03:04] LABS: APPEARANCE CLEAR (CLEAR); BILIRUBIN NEGATIVE (NEGATIVE); COLOR YELLOW (YELLOW); GLUCOSE 1000 mg/dL (NEGATIVE); KETONE LARGE mg/dL (NEGATIVE); NITRITE NEGATIVE (NEGATIVE); PROTEIN NEGATIVE (NEGATIVE); SPECIFIC GRAVITY 1.015 (1.005-1.020); UROBILINOGEN NORMAL (NORMAL)
[2019-05-30 03:05] LABS: BACTERIA FEW /hpf (NONE SEEN); EPITHELIAL CELLS 0-5 /hpf (0-5); HYALINE CAST 0-5 /lpf (NONE SEEN); RED CELLS - URINE 0-5 /hpf (0-5); WHITE CELLS - URINE 0-5 /hpf (0-5)
[2019-05-30 03:13] LABS: CKMB 4.8 U/L (0.0-3.6); CREATINE KINASE 113 UL (21-232); TROPONIN-I 0.028 ng/mL (0.000-0.060)
[2019-05-30 05:40] VITALS: BP 147/75
== END 2019-05-30 05:40 | disposition other institution (70) ==
LOC: D.ER 00:07
PROVIDERS: Family Medicine
DX: E87.2 Acidosis (principal); E11.65 Type 2 diabetes mellitus with hyperglycemia; Z79.4 Long term (current) use of insulin; R11.2 Nausea with vomiting, unspecified; A41.9 Sepsis, unspecified organism

== ENCOUNTER 2019-09-30 14:37 | Emergency (ER) | payer OTHER ==
[~2019-09-30] VITALS: Ht 177.8 cm; Wt 76.4 kg
[2019-09-30 15:15] VITALS: Ht 177.8 cm; Wt 76.4 kg
[2019-09-30 15:49] LABS: BASOPHILS 0.2 % (0-2); EOSINOPHILS 0.7 % (0-7); HEMOGLOBIN 13.3 g/dL (13.5-17.5); IMMATURE GRANULOCYTES 0.2 % (0-5); LYMPHOCYTES 23.1 % (15-50); MCV 97.2 fL (80.0-100.0); MEAN PLATELET VOLUME 10.1 fL (7.4-10.4); MONOCYTES 8.6 % (2-11); NEUTROPHILS 67.2 % (40-80); RBC 3.91 10x6/uL (4.20-6.10); RDW 12.6 % (11.5-14.5); WBC 8.6 10x3/uL (4.8-10.8)
[2019-09-30 15:51] LABS: PLATELET COUNT 228 10x3/uL (130-400)
[2019-09-30 16:01] LABS: CALC OSMOLALITY 286 mosm/kg (275-300); CALCIUM 9.6 mg/dL (8.5-10.1); CARBON DIOXIDE 25.6 mmol/L (21.0-32.0); CHLORIDE - SERUM 94 mmol/L (98-107); CREATININE - SERUM 1.5 mg/dL (0.6-1.3); GLUCOSE 348 mg/dL (74-106); POTASSIUM - SERUM 4.3 mmol/L (3.5-5.1); SODIUM 133 mmol/L (136-145); UREA NITROGEN 33 mg/dL (7-18); eGFR NON AFRICAN AMERICAN 49 mL/min (90-120)
[2019-09-30 16:10] LABS: ALBUMIN 3.6 g/dL (3.4-5.0); ALKALINE PHOSPHATASE 102 U/L (46-116); ALT (SGPT) 34 U/L (10-68); AMYLASE - SERUM 59 U/L (25-115); BILIRUBIN - TOTAL 0.85 mg/dL (0.2-1.3); LIPASE 311 U/L (73-393); PROTEIN - SERUM 7.9 g/dL (6.4-8.2); TROPONIN-I < 0.017 ng/mL (0.000-0.060)
[2019-09-30 16:19] LABS: APPEARANCE CLEAR (CLEAR); COLOR YELLOW (YELLOW); SPECIFIC GRAVITY 1.015 (1.005-1.020)
[2019-09-30 16:20] LABS: BILIRUBIN NEGATIVE (NEGATIVE); GLUCOSE 1000 mg/dL (NEGATIVE); KETONE MODERATE mg/dL (NEGATIVE); NITRITE NEGATIVE (NEGATIVE); PROTEIN NEGATIVE (NEGATIVE); UROBILINOGEN NORMAL (NORMAL)
[2019-09-30] MEDS ORDERED: FLAGYL500 MG PO (18:50)
[2019-09-30 19:18] VITALS: BP 148/90
== END 2019-09-30 19:19 | disposition home or self-care (01) ==
LOC: D.ER 14:37
PROVIDERS: Emergency Medicine
DX: R10.32 Left lower quadrant pain (principal); E11.9 Type 2 diabetes mellitus without complications; Z79.4 Long term (current) use of insulin; I10 Essential (primary) hypertension; Z72.0 Tobacco use; R11.2 Nausea with vomiting, unspecified; R19.7 Diarrhea, unspecified